=== PATIENT | female | born 1990 | race Caucasian/White ===

== ENCOUNTER 2017-01-16 21:33 | Emergency (ER) | payer SELFPAY ==
--- NOTE | 2017-01-16 22:15 | EDM.PDOC ---
ED HPI GENERAL MEDICAL PROBLEM - General Chief Complaint: Exposure to Heat or Cold Stated Complaint: FROSTBITE Time Seen by Provider: 01/16/17 22:03 Source of Information: Reports: Patient History Limitations: Reports: No Limitations - History of Present Illness INITIAL COMMENTS - FREE TEXT/NARRATIVE: states walked in snow when car broke down and her shoe fell apart. c/o numbness bottom right foot. Right Feet Pain Score (Numeric/FACES): 4 - Related Data Allergies Allergy/AdvReac Type Severity Reaction Status Date / Time No Known Allergies Allergy Verified 01/16/17 21:41 Home Meds: Home Meds . 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 ED EXAM, GENERAL - Physical Exam Exam: See Below Exam Limited By: No Limitations General Appearance: Alert, WD/WN, Mild Distress, Other (upset) Ears: Hearing Grossly Normal Throat/Mouth: Normal Voice, No Airway Compromise Head: Atraumatic Neck: Non-Tender, Full Range of Motion Respiratory/Chest: No Respiratory Distress Cardiovascular: Regular Rate, Rhythm GI/Abdominal: Soft, Non-Tender Extremities: Other (right plantar erythematous but maintenance coordinator, NV wnl, gait limited to painl ) Neurological: Alert, Oriented, Normal Cognition, No Motor/Sensory Deficits Psychiatric: Tearful Skin Exam: Warm, Dry, Normal Color Lymphatic: No Adenopathy Course - Vital Signs Last Recorded V/S: Last Vital Signs Temp 36.2 C 01/16/17 21:37 Pulse 125 H 01/16/17 21:37 Resp 20 01/16/17 21:37 BP 125/87 01/16/17 21:37 Pulse Ox 96 01/16/17 21:37 Departure - Departure Time of Disposition: 22:25 Disposition: Home, Self-Care 01 Condition: Good Clinical Impression: Frostbite Qualifiers: Encounter type: initial encounter Qualified Code(s): T33.90XA - Superficial frostbite of unspecified sites, initial encounter - Discharge Information Instructions: Frostbite, [id number] Forms: ED Department Discharge Additional Instructions: 1) keep feet warm 2) recheck if there is any change or concern
== END 2017-01-16 22:25 | disposition home or self-care (01) ==
LOC: EDBD → DL.ED 21:33
DX: T33.821A Superficial frostbite of right foot, initial encounter (principal); Z77.22 Contact with and (suspected) exposure to environmental tobacco smoke (acute) (chronic); X31.XXXA Exposure to excessive natural cold, initial encounter
CPT/HCPCS: 99282; 99283